=== PATIENT | male | born 1970 | race Caucasian/White ===

== ENCOUNTER 2016-05-05 08:39 | Outpatient (RCR) | payer OTHER ==
[2016-05-05 09:25] LABS: BASOPHILS % (AUTO) 1 % (0-10); EOSINOPHILS # (AUTO) 0.2 10^3/uL (0.0-0.3); EOSINOPHILS % (AUTO) 3 % (0-10); LYMPHOCYTES # (AUTO) 1.8 X 10^3 (1.0-4.0); LYMPHOCYTES % (AUTO) 33 % (12-44); MEAN CORPUSCULAR HEMOGLOBIN 31 PG (25-34); MEAN CORPUSCULAR HGB CONC 34 G/DL (32-36); MEAN CORPUSCULAR VOLUME 91 FL (80-99); MEAN PLATELET VOLUME 10.1 FL (7.4-10.4); MONOCYTES # (AUTO) 0.5 X 10^3 (0.0-1.0); MONOCYTES % (AUTO) 9 % (0-12); NEUTROPHILS % (AUTO) 54 % (42-75); PLATELET COUNT 197 10^3/uL (130-400); RED BLOOD COUNT 5.06 10^6/uL (4.35-5.85); RETICULOCYTE % 1.19 % (0.50-2.40); WHITE BLOOD COUNT 5.6 10^3/uL (4.3-11.0)
[2016-05-05 10:26] LABS: ALANINE AMINOTRANSFERASE 35 U/L (0-55); ALBUMIN 4.3 G/DL (3.2-4.5); ANION GAP 10 MMOL/L (5-14); ASPARTATE AMINO TRANSFERASE 25 U/L (5-34); BILIRUBIN,TOTAL 0.5 MG/DL (0.1-1.0); BLOOD UREA NITROGEN 18 MG/DL (7-18); BUN/CREATININE RATIO 20; CALCIUM 8.8 MG/DL (8.5-10.1); CARBON DIOXIDE 22 MMOL/L (21-32); CHLORIDE 107 MMOL/L (98-107); CREATININE SERUM 0.91 MG/DL (0.60-1.30); GFR ESTIMATED > 60; GLUCOSE 91 MG/DL (70-105); LACTATE DEHYDROGENASE 187 U/L (125-220); POTASSIUM 4.3 MMOL/L (3.6-5.0); SODIUM 139 MMOL/L (135-145); TOTAL PROTEIN 7.1 G/DL (6.4-8.2)
[2016-05-05 10:48] LABS: THYROID STIMULATING HORMONE 1.79 UIU/ML (0.35-4.94)
[2016-05-05 11:39] LABS: hs C REACTIVE PROTEIN 0.14 MG/DL (0.00-0.50)
[2016-05-05 11:49] LABS: ERYTHROCYTE SEDIMENTATION RATE 2 MM/HR (0-15)
== END 2016-08-03 | disposition home or self-care (01) ==
LOC: ONC 08:39
PROVIDERS: ATTEND Internal Medicine Hematology & Oncology
DX: D69.6 Thrombocytopenia, unspecified (principal); R53.83 Other fatigue; R06.83 Snoring; E66.9 Obesity, unspecified; Z68.32 Body mass index [BMI] 32.0-32.9, adult; F17.220 Nicotine dependence, chewing tobacco, uncomplicated
CPT/HCPCS: 36415; 80053; 83615; 84443; 85025; 85045; 85652; 86038; 86141; 99214

== ENCOUNTER 2016-11-23 19:40 | Outpatient (CLI) | payer OTHER | END 2016-11-24 06:10 | disposition home or self-care (01) | LOC: SLEEP 19:40 | PROVIDERS: ATTEND Family Medicine | DX: G47.33 Obstructive sleep apnea (adult) (pediatric) (principal) | CPT/HCPCS: 95811 ==

== ENCOUNTER → 2021-11-03 | Outpatient (CLI) | payer BC, OTHER ==
[2021-11-03 10:13] VITALS: BP 128/89
--- NOTE | 2021-11-03 12:12 | Cardiology Stress Test Report ---
Stress Test Report Date of Procedure/Referring: Date of Procedure: Nov 03, 2021 PCP Wandy Salinas DO Admitting Physician Admitting Physician: Attending Physician: Wandy Salinas DO Indications: CP Baseline Heart Rate: 77 Baseline Blood Pressure: Blood Pressure Systolic: 128 Blood Pressure Diastolic: 89 Baseline EKG: Baseline EKG: NSR Summary/Conclusion: Summary: In summary, the patient started exercising with a baseline heart rate, blood pressure and EKG mentioned above Patient was able to exercise for a total of 8 minutes on Tayo protocol, METs 9.7 Maximum heart rate 157 Maximum blood pressure 207/64 Stress EKG, Minimal nondiagnostic changes Recovery EKG , Return to baseline Conclusion: 1. Good exercise tolerance for a total of 8 minutes on Tayo protocol, 9.7 METs, achieving 92 percent of maximum expected heart rate 2. Minimal nondiagnostic EKG changes with exercise returned to baseline during recovery 3. No arrhythmia was noted Copy Copies To 1: WANDY SALINAS BASHAR J MD Nov 03, 2021 12:12
== END ==
LOC: CARD 09:35
PROVIDERS: ATTEND Family Medicine
DX: R07.9 Chest pain, unspecified (principal); R06.09 Other forms of dyspnea
CPT/HCPCS: 93017

== ENCOUNTER → 2021-11-14 | Outpatient (CLI) | payer BC | LOC: CARD 13:01 | PROVIDERS: ATTEND Internal Medicine Cardiovascular Disease | DX: I35.1 Nonrheumatic aortic (valve) insufficiency (principal); I11.9 Hypertensive heart disease without heart failure; I25.10 Atherosclerotic heart disease of native coronary artery without angina pectoris | CPT/HCPCS: 93306 ==

== ENCOUNTER → 2021-12-11 | Outpatient (CLI) | payer BC ==
[~2021-12-11] MED LIST: RT-ALBUTEROL SULF 2.5 MG/3 ML PRE-MIX VIAL INH ONE
--- NOTE | 2021-12-11 09:14 | Diagnostic Imaging Report ---
INDICATION: Shortness of air with difficulty breathing with exertion. EXAMINATION: Two-view chest 12/11/2021. FINDINGS: There are mild increased interstitial markings in the lower lungs likely atelectasis. No infiltrates or effusions. Heart is normal. Pulmonary vasculature unremarkable. IMPRESSION: 1. Bibasilar atelectasis. Dictated by: Dictated on workstation # [id number]
== END ==
LOC: RT 08:00
PROVIDERS: ATTEND Nurse Practitioner Family
DX: J98.11 Atelectasis (principal)
CPT/HCPCS: 71046; 94060; 94726; 94729